=== PATIENT | male | born 1950 | race Caucasian/White ===

== ENCOUNTER 2020-12-18 08:05 | Emergency (ER) | payer OTHER ==
[~2020-12-18] VITALS: Ht 182.9 cm; Wt 81.7 kg
--- NOTE | ~2020-12-18 | EMS ---
[address] [address] EMS Patient Care Report Name: JIM OLSON Room #: DEP YRIS Umanzor#: [id number] Admission: 12/18/20 Attend Phys: Discharge: 12/18/20 Date of : 50 Report #: [id number] THIS REPORT FOR: //name// Report Transmitted: 12/19/2020 08:32 EMS Care Summary [place], [place]/[facility] Incident [id number] @ 12/18/2020 07:35 Incident Location [address] [place] [address] Patient JERMAINE OLSON Male, 70 Years 1950 Patient Address [address] [place] [address] Patient History Hypertension (HTN),Stroke/CVA,Myocardial Infarction (LA), Patient Allergies No known allergies, Patient Medications Aspirin, Chief Complaint BACK PAIN Disposition Transported No Lights/[place] Dispatch Reason Chest Pain (Non-Traumatic) Transported To [facility] Narrative M41 WAS DISPATCHED TO A RESIDENCE ON A CHEST PAIN. ON ARRIVAL PT IS FOUND WALKING OUT THE FRONT DOOR TOWARDS THE AMBULANCE. PT IS ALERT AND ORIENTED GCS OF15 AND COMPLAINS OF LOWER BACK PAIN FROM A FALL TWO DAYS AGO AND CHEST PAIN. PT TELLS EMS THAT HE FELL DOWN THE STAIRS TWO DAYS AGO AND DENIES HITTING HIS [address] [address] EMS Patient Care Report Name: JIM OLSON Room #: DEP [facility]#: [id number] Admission: 12/18/20 Attend Phys: Discharge: 12/18/20 Date of : 50 Report #: [id number] HEAD OR LOC OR ANY COMPLAINTS RELATED TO THAT INCIDENT OTHER THAN THE BACK PAIN. PT REQUESTS TRANSPORT TO NEAREST HOSPITAL FOR EVALUATION AND TREATMENT. PT HAS SMELL OF ALCOHOL ON HIS BREATH AND ADMITS TO ALCOHOL USE. 12 LEAD SHOWS SINUS RHYTHM. VITALS MONITORED EN ROUTE WITH NO CHANGES IN PT CONDITION. Initial Vitals @07:43P: 102,CO: 2,LA Suspected: false @07:43P: 95,R: 18,BP: 145/77,Pain: 6/10,GCS: 15,CO: 3,SpO2: 95,Revised Trauma: 12, @07:56P: 95,R: 18,BP: 115/72,Pain: 6/10,GCS: 15,SpO2: 95,Revised Trauma: 12, Assessments @07:41MENTAL:Time Oriented,Place Oriented,Event Oriented,Person Oriented,SKIN:HEENT:Head/Face: No Abnormalities,Neck/Airway: No Abnormalities,LUNG SOUNDS:General: No Abnormalities,ABDOMEN:General: No Abnormalities,PELVIS//GI:No Abnormalities,EXTREMITIES:Left Arm: No Abnormalities,Right Arm: No Abnormalities,Left Leg: No Abnormalities,Right Leg: No Abnormalities,PULSE:NEURO:No Abnormalities, Impression Injury of Lower Back Procedures @07:4312-Lead ECGResponse: UnchangedSucceeded@07:41ALS AssessmentResponse: UnchangedSucceeded@07:43Aspirin - 324 Milligrams (mg) - OralResponse: Unchanged Timeline 07:32,Call Received 07:32,Dispatch Notified 07:35,Dispatched 07:35,En Route 07:40,On Scene 07:41,At Patient 07:41,ALS Assessment,Response: UnchangedSucceeded, 07:43,Aspirin - 324 Milligrams (mg) - Oral,Response: Unchanged 07:43,BP: 145/77 M,PULSE: 95,RR: 18 R,SPO2: 95 Ox,ETCO2: ,BG: ,PAIN: 6,GCS: 15, 07:43,12-Lead ECG,Response: UnchangedSucceeded, 07:43,BP: / M,PULSE: 102,RR: R,SPO2: Ox,ETCO2: ,BG: ,PAIN: ,GCS: , 07:50,Depart Scene 07:56,BP: 115/72 M,PULSE: 95,RR: 18 R,SPO2: 95 Ox,ETCO2: ,BG: ,PAIN: 6,GCS: 15, 08:03,At Destination 08:12,Call Closed Disclaimer [email or web address] Copyright 2020 [employer] This EMS Care Summary contains data elements from the applicable legal record [address] [address] EMS Patient Care Report Name: WHITNEYJIM Room #: [facility] Erna#: [id number] Admission: 12/18/20 Attend Phys: Discharge: 12/18/20 Date of : 50 Report #: [id number] (which may be displayed differently). It is designed to provide pertinent information for the following purposes: continuity of care, clinical quality, and state data reporting. The complete legal record is available to ED staff and administrators of the receiving hospital in [facility]'s Patient Tracker. All data is provided "as is."
--- NOTE | 2020-12-18 08:23 | EKG ---
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
[2020-12-18 08:30] LABS: ABSOLUTE NEUTROPHILS 3.2 thou/uL (1.4-8.2); BASOPHILS 1.4 % (0.0-2.0); EOSINOPHILS 3.3 % (0.0-3.0); HEMATOCRIT 41.4 % (42.0-52.0); HEMOGLOBIN 14.1 gm/dL (14.0-18.0); LYMPHOCYTES 23.1 % (24.0-44.0); MCH 34.2 pg (26.0-34.0); MCV 100.4 fL (80.0-100.0); MONOCYTES 8.3 % (1.0-8.0); PLATELET COUNT 165 thou/uL (150-400); POLYS 63.9 % (36.0-66.0); RBC 4.12 mil/uL (4.50-6.00); RDW 13.2 % (10.5-14.5); WBC 5.1 thou/uL (4.0-11.0)
[2020-12-18 08:42] LABS: ANION GAP 15 mmol/L (7-16); BUN 21 mg/dL (7-18); CALCIUM 8.3 mg/dL (8.5-10.1); CHLORIDE 106 mmol/L (98-107); CO2 23 mmol/L (21-32); CREATININE 1.1 mg/dL (0.7-1.3); GLUCOSE 98 mg/dL (74-106); POTASSIUM 4.3 mmol/L (3.5-5.1); SODIUM 144 mmol/L (136-145)
[2020-12-18 08:52] LABS: ALBUMIN 3.6 g/dL (3.4-5.0); SGOT 23 U/L (15-37); SGPT 28 U/L (30-65); TOTAL BILIRUBIN 0.4 mg/dL (0.2-1.0); TOTAL PROTEIN 7.1 g/dL (6.4-8.2); TROPONIN-I <0.06 ng/mL (<0.06)
[2020-12-18] MEDS ORDERED: NORCO5 PO (11:05)
[2020-12-18 11:09] VITALS: BP 145/78
== END 2020-12-18 11:09 | disposition home or self-care (01) ==
LOC: ER 08:05
PROVIDERS: Emergency Medicine
DX: S30.0XXA Contusion of lower back and pelvis, initial encounter (principal); F10.10 Alcohol abuse, uncomplicated; R07.89 Other chest pain; Y90.6 Blood alcohol level of 120-199 mg/100 ml; W17.89XA Other fall from one level to another, initial encounter; Y93.89 Activity, other specified; Y92.89 Other specified places as the place of occurrence of the external cause; Y99.8 Other external cause status